=== PATIENT | male | born 1970 | race Caucasian/White ===

== ENCOUNTER 2020-04-28 19:49 | Emergency (ER) | payer OTHER ==
[~2020-04-28] VITALS: Ht 182.9 cm; Wt 83.9 kg
[2020-04-28 20:26] VITALS: BP 117/85
== END 2020-04-28 20:22 | disposition home or self-care (01) ==
LOC: ER 19:49
DX: F10.129 Alcohol abuse with intoxication, unspecified (principal); Y90.9 Presence of alcohol in blood, level not specified